=== PATIENT | male | born 1965 | race Caucasian/White ===

== ENCOUNTER 2019-06-25 08:32 | Emergency (ER) | payer OTHER, BC ==
[2019-06-25] MEDS ORDERED: DIPH/PERTUSS(ACELL)/TETANUS VAC/PF 0.5 ML SYR (>=10YO) IM ONE (09:33)
[2019-06-25] MEDS ORDERED: LIDOCAINE 1.5%/EPINEPHRINE INJ-PF 30 ML SDV INJ ONE (09:34)
--- NOTE | 2019-06-25 09:38 | ER Document Report ---
ED Wound - General Chief Complaint: Laceration Stated Complaint: ARM LACERATION Primary Care Provider: THONY YOUNG MD [Primary Care Provider] - Follow up as needed Notes: 54 year old left handed male arrives with right palmar injury to right hand after accidentally causing a laceration to his right wrist/ forearm/ palm. TRAVEL OUTSIDE OF THE [place] IN LAST 30 DAYS: No - HPI Patient complains to provider of: Laceration Occurred: This morning Quality of pain: Achy Severity: Mild Pain Level: 1 Context: Injury Skin Color: Normal Capillary refill: < 3 seconds Sensations intact: Yes Distal pulses present: Yes - Related Data Allergies/Adverse Reactions: No Known Allergies Allergy (Verified 06/25/19 09:11) Past Medical History - Social History Smoking Status: Never Smoker Frequency of alcohol use: Occasional Drug Abuse: None Family History: None Patient has suicidal ideation: No Patient has homicidal ideation: No Review of Systems - Review of Systems Constitutional: No symptoms reported EENT: No symptoms reported Cardiovascular: No symptoms reported Respiratory: No symptoms reported Gastrointestinal: No symptoms reported Genitourinary: No symptoms reported Male Genitourinary: No symptoms reported Musculoskeletal: No symptoms reported Skin: See HPI Hematologic/Lymphatic: No symptoms reported Neurological/Psychological: No symptoms reported Physical Exam - Vital signs Vitals: Temp Pulse Resp BP Pulse Ox 97.7 F 65 20 189/109 H 98 06/25/19 08:37 06/25/19 08:37 06/25/19 08:37 06/25/19 08:37 06/25/19 08:37 Interpretation: Normal - General General appearance: Appears well, Alert - HEENT Head: Normocephalic, Atraumatic Eyes: Normal Pupils: PERRL - Respiratory Respiratory status: No respiratory distress Chest status: Nontender Breath sounds: Normal Chest palpation: Normal - Cardiovascular Rhythm: Regular Heart sounds: Normal auscultation Murmur: No - Abdominal Inspection: Normal Distension: No distension Bowel sounds: Normal Tenderness: Nontender Organomegaly: No organomegaly - Back Back: Normal, Nontender - Extremities General upper extremity: Normal inspection, Nontender, Normal color, Normal ROM, Normal temperature General lower extremity: Normal inspection, Nontender, Normal color, Normal ROM, Normal temperature, Normal weight bearing. 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 Left handed. Right arm injury. We discussed wound care and watching for infection. He expressed understanding. - Vital Signs Vital signs: Temp Pulse Resp BP Pulse Ox 97.9 F 54 L 16 127/86 H 98 06/25/19 11:26 06/25/19 11:26 06/25/19 11:26 06/25/19 11:26 06/25/19 11:26 Procedures - Laceration/Wound Repair Right Volar Arm Time completed: 10:55 Wound length (cm): 18 Wound's Depth, Shape: Superficial, Into muscle, Linear Laceration pre-procedure: Chloraprep applied Anesthetic type: 1% Lidocaine w/epi Volume Anesthetic (mLs): 12 Wound explored: Clean, No foreign body removed Wound Repaired With: Sutures Suture Size/Type: 4:0, Ethilon Number of Sutures: 22 Layer Closure?: No Post-procedure wound care: Sterile dressing applied Discharge - Discharge Clinical Impression: Encounter for wound care, Laceration Condition: Good Disposition: HOME, SELF-CARE Instructions: Laceration Care (OM), Tetanus Immunization Given ([facility]) Additional Instructions: Keep clean and dry for 36 hours and then clean. Return here for redness streaking or discharge from the wound. Please return here for any problems or any concerns. Take tylenol or motrin for pain. Referrals: THONY YOUNG MD [Primary Care Provider] - Follow up as needed
[2019-06-25] MEDS ORDERED: LIDOCAINE 1%/EPINEPHRINE INJ 20 ML VIAL ONE (09:59)
[2019-06-25 11:30] VITALS: BP 127/86
== END 2019-06-25 11:31 | disposition home or self-care (01) ==
LOC: ER 08:32
DX: S61.411A Laceration without foreign body of right hand, initial encounter (principal); S61.511A Laceration without foreign body of right wrist, initial encounter; S51.811A Laceration without foreign body of right forearm, initial encounter; W26.8XXA Contact with other sharp object(s), not elsewhere classified, initial encounter; Y93.89 Activity, other specified; Y99.0 Civilian activity done for income or pay
CPT/HCPCS: 99282; 90471; 90715; 12005; J3490